=== PATIENT | female | born 2000 | race Hispanic/Latino ===

== ENCOUNTER 2021-04-21 20:33 | Inpatient (IN) | payer MEDICAID ==
[~2021-04-21] VITALS: Ht 160 cm; Wt 61.2 kg
[2021-04-21] MEDS ORDERED: LACTATED RINGERS 1000ML 1,000 ML IV PRN (21:00)
[2021-04-21] MEDS ORDERED: NALOXONE HCL 0.4 MG/1 ML ML IV PRN (21:00)
[2021-04-21] MEDS ORDERED: MEPERIDINE-PF 50 MG/ML SYG IVP PRN (21:00)
[2021-04-21] MEDS ORDERED: LACTATED RINGERS 500 ML 500 ML IV PRN (21:00)
[2021-04-21] MEDS ORDERED: PROMETHAZINE HCL 25 MG/ML 1ML AMPULE IM PRN (21:00)
[2021-04-21] MEDS ORDERED: EPHEDRINE SULFATE 50 MG/ML AMPULE IVP PRN (21:00)
[2021-04-21 21:03] LABS: APPEARANCE,URINE Clear (CLEAR); BILIRUBIN,URINE Negative (NEGATIVE); COLOR,URINE Yellow (YELLOW); GLUCOSE, URINE (UA) Negative (NEGATIVE); KETONES,URINE Trace mg/dL (NEGATIVE); LEUKOCYTE ESTERASE ,URINE Small (NEGATIVE); NITRATE,URINE Negative (NEGATIVE); OCCULT BLOOD,URINE Negative (NEGATIVE); PH,URINE 6.5 (5.0-8.0); PROTEIN,URINE Negative (NEGATIVE)
[2021-04-21 21:16] LABS: BACTERIA,URINE Rare /HPF (None Seen); MUCUS,URINE Few LPF (None Seen); RBC,URINE 0-1 /HPF (0-1); SQUAMOUS EPITHELIAL CELL,UR Few /HPF (0-2)
[2021-04-21 22:53] LABS: HEMATOCRIT 28.3 % (36-48); MEAN CORPUSCULAR HEMOGLOBIN 25.5 pg (27.0-33.0); MEAN CORPUSCULAR HGB CONC 31.8 g/dL (32.0-36.0); MEAN CORPUSCULAR VOLUME 80.2 fL (80-100); RED BLOOD CELL COUNT(AUTO) 3.53 MIL/uL (4.00-5.50); RED CELL DISTRIBUTION WIDTH 13.6 % (11.0-15.5); WHITE BLOOD COUNT (AUTO) 9.8 K/uL (4.8-10.8)
[2021-04-22] MEDS ORDERED: DINOPROSTONE 10 MG VAGINAL SUPP VG SCH
[2021-04-22] MEDS: OXYTOCIN-LR 20 UNITS/1000 ML 1,000 ML IV SCH ×2 (10:09→19:27)
[2021-04-22] MEDS ORDERED: MEPERIDINE-PF 25 MG/ML SYG IVP SCH (13:30)
[2021-04-22 15:40] VITALS: BP 116/71
[2021-04-22] MEDS ORDERED: ACETAMINOPHEN WITH CODEINE 1 TAB TAB PO PRN (16:30)
[2021-04-22] MEDS ORDERED: DIPH,PERTUSS(ACELL),TET VAC/PF 0.5 ML VIAL IM PRN (16:30)
[2021-04-22] MEDS ORDERED: WITCH HAZEL 1 PAD TP PRN (16:30)
[2021-04-22] MEDS ORDERED: BENZOCAINE/LANOLIN/ALOE VERA 60 ML AEROSOL TP PRN (16:30)
[2021-04-22] MEDS ORDERED: ACETAMINOPHEN 325 MG TAB PO PRN (16:30)
[2021-04-22] MEDS ORDERED: LANOLIN 30GM OINTMENT TP PRN (16:30)
[2021-04-22] MEDS: IBUPROFEN 600 MG TABLET PO PRN (17:19)
[2021-04-22] MEDS ORDERED: FERR-82 PO (17:33)
[2021-04-22] MEDS ORDERED: PREN-154 PO (17:33)
[2021-04-22 19:43] VITALS: BP 127/75
[2021-04-22] MEDS: DOCUSATE SODIUM 100 MG CAP PO SCH (21:07)
[2021-04-23 00:48] VITALS: BP 123/71
[2021-04-23] MEDS: IBUPROFEN 600 MG TABLET PO PRN ×3 (00:53→17:37)
[2021-04-23 04:04] VITALS: BP 130/76
[2021-04-23 05:46] LABS: HEMATOCRIT 29.3 % (36-48); MEAN CORPUSCULAR HEMOGLOBIN 24.8 pg (27.0-33.0); MEAN CORPUSCULAR HGB CONC 31.1 g/dL (32.0-36.0); MEAN CORPUSCULAR VOLUME 79.8 fL (80-100); PLATELET COUNT (AUTO) 389 K/uL (130-400); RED BLOOD CELL COUNT(AUTO) 3.67 MIL/uL (4.00-5.50); RED CELL DISTRIBUTION WIDTH 13.6 % (11.0-15.5); WHITE BLOOD COUNT (AUTO) 16.7 K/uL (4.8-10.8)
[2021-04-23 07:15] LABS: HEPATITIS Bs ANTIGEN SCREEN P Negative (Negative)
[2021-04-23 07:26] VITALS: BP 118/75
[2021-04-23] MEDS: DOCUSATE SODIUM 100 MG CAP PO SCH (09:09)
[2021-04-23 11:09] VITALS: BP 112/62
[2021-04-23 16:29] VITALS: BP 109/62
[2021-04-23] MEDS ORDERED: DOCU-116 PO (17:35)
[2021-04-23] MEDS ORDERED: IBUP-2070 PO (17:35)
== END 2021-04-23 18:25 | disposition home or self-care (01) | DRG 560 ==
LOC: LDH 20:33 → WSH 04-22 15:40
PROVIDERS: ADMIT Internal Medicine; ATTEND Internal Medicine
PROC: 10E0XZZ Delivery of Products of Conception, External Approach (ICD-10-PCS; principal; 2021-04-22)
PROC: 0UQGXZZ Repair Vagina, External Approach (ICD-10-PCS; 2021-04-22)
PROC: 10907ZC Drainage of Amniotic Fluid, Therapeutic from Products of Conception, Via Natural or Artificial Opening (ICD-10-PCS; 2021-04-22)
PROC: 0KQM0ZZ Repair Perineum Muscle, Open Approach (ICD-10-PCS; 2021-04-22)
DX: O69.81X0 Labor and delivery complicated by cord around neck, without compression, not applicable or unspecified (principal); O71.4 Obstetric high vaginal laceration alone; O70.1 Second degree perineal laceration during delivery; Z37.0 Single live birth; Z3A.39 39 weeks gestation of pregnancy
CPT/HCPCS: 36415; 81001; 85027; 86592; 86850; 86900; 86901; 87340; G0378; J2175; J2550; J2590